=== PATIENT | female | born 1990 | race Caucasian/White ===

== ENCOUNTER 2016-06-09 15:40 | Emergency (ER) | payer BC, OTHER ==
[~2016-06-09] VITALS: Ht 165.1 cm; Wt 70.5 kg
[~2016-06-09 15:40] MED LIST: ASCO10007 PO; CRAN450C PO; HYDR-4246 PO; IBUP-1547 PO; PREN1TAB73 PO
[2016-06-09 15:43] VITALS: Ht 165.1 cm; Wt 70.5 kg
[2016-06-09] MEDS ORDERED: KETOROLAC 30mg/ml INJECTION IV ONE (16:00)
--- NOTE | 2016-06-09 16:07 | ERPDOC ---
Departure Disposition Decision Date: Jun 09, 2016 (2929) Disposition Decision Time: 17:30 Disposition: 01 DISCHARGED HOME, SELF-CARE Impression Impression Impression: Primary Impression: Hypokalemia Additional Impressions: Palpitations Dehydration Severity: Mild Condition: Stable Seen By: Mid-level only Patient Instructions: Dehydration (ED) Problems/Meds/Labs Reviewed?: Yes Medications reviewed and manag: Yes Additional Instructions: Home and rest, stay well-hydrated with water, also use electrolyte supplementation such as Gatorade. Avoid caffeine. Noted are for further episodes of palpitations. Follow-up with primary care provider in the next 2-3 days. May require further outpatient evaluation include a Holter monitor. Return to the emergency room for worsening symptoms Follow up care ordered?: Yes Mental Status: Alert, Oriented HPI - Cardiac General Chief Complaint: Chest Pain Stated Complaint: HEART RACING, CHEST FEELS HEAVY Time Seen by Provider: 15:45 Source: patient HPI - Cardiac General Initial Comments Chuyita presents today with complaint of palpitations. She recently just finished a 12 hour shift and was on her drive home. She began to feel her heart race and short of air. She also reports that she became diaphoretic. This occurred for about 20 minutes. She then drove to the ED for further evaluation and treatment. She has a 9 month old daughter and is currently breast feeding. She is a . LMP was within the past month. She denies being on control or being a smoker. She also denies any change in her medications, PMH or diet. She has not increased her caffeine intake from her average 2 cups daily. She recently traveled a 6 [address] ride to [place]. She is seen lying in bed without any indications of distress. Occurred At: home Onset/Timing: Rapid Pain/Severity Scale: Now: 5/10 Severity: mild Location: substernal Activities at Onset/Context: other (driving) Prior CP/Workup: no prior chest pain Modifying Factors: IMPROVES WITH: breathing, palpation Nitro Today/Relief: no nitro taken today Aspirin Today: unknown (none) Associated Symptoms: chest pain, diaphoresis, shortness of breath Hx of Similar Symptoms: No Allergies: Coded Allergies: Sulfa (Sulfonamide Antibiotics) (Verified Allergy, Unknown, RASH, 06/09/16) Past History Patient Medical History Problem List Updates: None Patient Surgical History None Past Medical History Pt denies signifigant PMH Metabolic: other Social History Smoking Status: Never smoker Does patient use chewing tobac: No Substance Use Type: does not use Alcohol Intake: none Marital Status: Housing: house Number of Children: 1 Current Occupational Status: employed Review of Systems Constitutional Constitutional: DENIES: chills, dizziness, fever, weakness Eyes General: DENIES: pain Lids/Accessories: DENIES: erythema, lumps/nodules ENMT Sinuses: DENIES: congestion, pain, rhinorrhea Mouth/Throat: DENIES: change in voice, sore throat Cardiovascular Cardiac: chest pain Rhythm/Rate: palpitations Pulmonary Respiratory: DENIES: cough, dyspnea, tachypnea GI Upper Abdomen: DENIES: nausea, pain, vomiting Lower Abdomen: DENIES: blood in stool, constipation, diarrhea, pain General: DENIES: burning, dysuria, frequency, pain, urgency : see HPI Musculoskeletal General: DENIES: pain, weakness Integumentary Skin: DENIES: rash Neurological General: DENIES: ataxia, change in strength, headache, numbness, seizures, syncope, weakness Psychiatric Psychiatric: DENIES: depression, emotional instability, irritability, nervousness All other Systems All Other Systems: Reviewed and Negative Physical Exam General General Nourishment: well nourished Vitals and Pain First Documented Vital Signs Date Time Temp Pulse Resp B/P Pulse Ox O2 Delivery O2 Flow Rate FiO2 06/09/16 15:43 98.7 92 20 140/93 99 Room Air Weight: Kilograms: Height (feet): 5 Height (inches): 5.00 Triage Pain Scale: Normal Exams: Head: Normocephalic w/o trauma Neck: Full range of motion, without adenopathy, JVD, bruits or thyromegaly Chest/Resp: Clear all [place] CV: Regular rate and rhythm, Pulses 2+ all extremities, no pedal edema noted Abdomen: Bowel sounds positive, soft, non-tender Musculoskeletal: No tenderness, or deformity noted, good range of motion, all extremities Integumentary: No rashes Neurologic: Patient is alert, and oriented Eyes (brief) Eyes Brief: found: EOMI Cardiovascular (brief) Cardiac: FOUND: other (pain with palpation) Pulses: equal Comments no erythema or pain to calves Integumentary (brief) Integumentary Brief: FOUND: dry, pink, warm Differential Diagnoses Considering: Acute MN, Anxiety/Panic, Atrial Fibrillation, Bradycardia, Hyperventilation, PSVT, Pulmonary Embolus, Other (costochronditis) Progress Results/Orders Orders Procedure Category Date Status Time Cbc W/Auto LAB 06/09/16 Complete Diff-Reflex Manual 16:00 Bmp - Basic Metabolic LAB 06/09/16 Complete Panel 16:00 Probnp LAB 06/09/16 Complete 16:00 Troponin I W LAB 06/09/16 Complete Hemolysis Index 16:00 LAB 06/09/16 Complete Qualitative, Serum 16:00 Ua, Dip Wreflex LAB 06/09/16 [employer] 16:00 D-Dimer LAB 06/09/16 Complete 16:00 Tsh - Thyroid Stim LAB 06/09/16 Complete Hormone 16:00 Magnesium LAB 06/09/16 Complete 16:00 EKG EKG 06/09/16 Taken 16:00 Chest 1 View RAD 06/09/16 Resulted 16:00 Iv Lock (Ed Only) EDM 06/09/16 Transmitted 16:00 Ketorolac (Toradol) PHA 06/09/16 Complete 16:00 1/2 Ns W/ Kcl 20meq PHA 06/09/16 Complete (1/2 Ns W/ Kcl 20meq 16:45 Potassium Chloride PHA 06/09/16 Complete (Kdur) 17:45 Lab Results Laboratory Tests Test 06/09/16 15:55 White Blood Count 8.5T/MM3 Red Blood Count 4.46M/MM3 Hemoglobin 14.1GM/DL Hematocrit 41.5% Mean Corpuscular Volume 93.0UM3 Mean Corpuscular Hemoglobin 31.6UUG Mean Corpuscular Hemoglobin Concent 34.0GM/DL RDW Standard Deviation 38.6FL Platelet Count 221T/MM3 Mean Platelet Volume 9.5UM3 Immature Granulocyte % (Auto) 0.1% Neutrophils (%) (Auto) 59.5% Lymphocytes (%) (Auto) 33.5% Monocytes (%) (Auto) 5.2% Eosinophils (%) (Auto) 1.3% Basophils (%) (Auto) 0.4% Absolute Immature Granulocyte (auto 0.01T/MM3 Absolute Neutrophils (auto) 5.0T/MM3 Absolute Lymphocytes (auto) 2.8T/MM3 Absolute Monocytes (auto) 0.4T/MM3 Absolute Eosinophils (auto) 0.1T/MM3 Absolute Basophils (auto) 0.0T/MM3 D-Dimer < 150NG/ML Turbidity 25 Sodium Level 146MEQ/L Potassium Level 3.5MEQ/L Chloride Level 108MEQ/L Carbon Dioxide Level 21MEQ/L Anion Gap 17MEQ/L Blood Urea Nitrogen 20.0MG/DL Creatinine 0.8MG/DL Glomerular Filtration Rate Calc 86 BUN/Creatinine Ratio 25RATIO Glucose Level 110MG/DL Calculated Osmolality 285MOSM/KG Calcium Level 9.3MG/DL Magnesium Level 1.9MG/DL Icterus Index < 2 Troponin I < 0.012ng/ml [id number]-Zit-I-Type Natriuretic Peptide 72PG/ML Thyroid Stimulating Hormone (TSH) 3.13MIU/L Human Chorionic Gonadotropin, Qual Negative Chemistry Specimen Hemolysis < 15 Medications Current ED Medications Ketorolac Tromethamine 30 mg 30 mg O ONCE IV Last administered on 06/09/16 16 :06; Start 06/09/16 at 16:00; Stop 06/09/16 at 16:05; Status DC Potassium Chloride/Sodium Chloride (1/2 NS w/ KCL 20mEq) 1,000 ml @ 500 mls/hr Q2H IV Last administered on 06/09/16 16:44; Start 06/09/16 at 16:45; Stop at 18:06; Status DC Potassium Chloride (Kdur) 20 meq O ONCE PO Last administered on 06/09/16 17: 48; Start 06/09/16 at 17:45; Stop 06/09/16 at 17:46; Status DC Progress Progress 1740- reevaluate patient. She is doing well, taking an oral fluids without difficulty. No further episodes of chest pressure or palpitations. Did review hypernatremia and hypokalemia. Patient given IV fluid replacement. Will also add oral potassium supplementation 20 milliequivalents. Discussed possible causes of palpitations including dehydration, electrolyte abnormalities, stress , caffeine, etc. Encourage patient to decrease amount of caffeine. Patient does currently. Breast pump and is at high risk for dehydration. Encouraged her to increase her oral intake and also utilize electrolyte supplementation such as Gatorade. Instructed patient to monitor for further episodes of palpitations. She may require further outpatient evaluation including Holter monitor with her primary care provider. Xray Xray : Xray: CXR PA/Lat Interpretation: CHINO Blanca APRN Jun 09, 2016 16:07
[2016-06-09 16:13] LABS: BASOPHILS % (AUTO) 0.4 % (0-2); EOSINOPHILS # (AUTO) 0.1 T/MM3 (0-0.5); EOSINOPHILS % (AUTO) 1.3 % (0-4); HCT - HEMATOCRIT 41.5 % (36-46); HGB - HEMOGLOBIN 14.1 GM/DL (12-16); IMMATURE GRANULOCYTE # (AUTO) 0.01 T/MM3 (0.00-0.03); IMMATURE GRANULOCYTE % (AUTO) 0.1 % (0.0-0.5); LYMPHOCYTES # (AUTO) 2.8 T/MM3 (1-4.8); LYMPHOCYTES % (AUTO) 33.5 % (23-45); MEAN CORPUSCULAR HGB 31.6 UUG (26-34); MEAN PLATELET VOLUME 9.5 UM3 (9.4-12.4); MONOCYTES # (AUTO) 0.4 T/MM3 (0-0.8); MONOCYTES % (AUTO) 5.2 % (0-9.0); NEUTROPHILS % (AUTO) 59.5 % (33-66); RED BLOOD COUNT 4.46 M/MM3 (4.00-5.20); WBC - WHITE BLOOD COUNT 8.5 T/MM3 (4.5-11.0)
[2016-06-09 16:18] LABS: ANION GAP 17 MEQ/L (5-15); BUN/CREATININE RATIO 25 RATIO (6-26); CALCIUM 9.3 MG/DL (8.4-10.2); CHLORIDE 108 MEQ/L (98-107); CO2 - CARBON DIOXIDE 21 MEQ/L (22-30); CREATININE 0.8 MG/DL (0.7-1.2); GLOMERULAR FILTRATION RATE 86; GLUCOSE 110 MG/DL (65-110); MAGNESIUM 1.9 MG/DL (1.6-2.3); POTASSIUM 3.5 MEQ/L (3.6-5); SODIUM 146 MEQ/L (134-144)
--- NOTE | 2016-06-09 16:25 | NUR ---
UPDATE PATIENT REPORTS SLIGHT IMPROVEMENT IN CHEST TIGHTNESS AFTER TORADOL ADMIN.
[2016-06-09 16:29] LABS: PROBNP 72 PG/ML (0-175)
--- NOTE | 2016-06-09 16:30 | NUR ---
ACTIVITY PATIENT AMBULATORY TO RESTROOM, TOLERATES ACTIVITY WELL.
[2016-06-09] MEDS ORDERED: 1/2 NS w/ KCL 20mEq 1,000 ML IV SCH (16:45)
[2016-06-09 16:47] LABS: THYROID STIM HORMONE-TSH 3.13 MIU/L (0.47-4.68)
--- NOTE | 2016-06-09 17:03 | NUR ---
UPDATE PATIENT SITTING IN CHAIR PUMPING. PATIENT REPORTS NO SIGNIFICANT CHANGE IN CHEST TIGHTNESS AT THIS TIME. PATIENT DENIES NEEDS.
[2016-06-09] MEDS ORDERED: POTASSIUM CHLORIDE 20 MEQ TABLET PO ONE (17:45)
[2016-06-09 18:03] VITALS: BP 127/87; PULSE 75; RESP 29; TEMP 98.7; O2SAT 99
--- NOTE | 2016-06-09 20:18 | DI ---
Indication: ITS.REASON: CHEST TIGHTNESS PROCEDURE: CHEST 1 VIEW: Encounter: Initial Comparison: None FINDINGS: The lungs are clear. There is no abnormal airspace opacity, pleural effusion or pneumothorax identified. The heart size, pulmonary vasculature and mediastinum are within normal limits. No significant skeletal abnormality is seen. IMPRESSION: No acute cardiopulmonary abnormality. .
== END 2016-06-09 18:03 | disposition home or self-care (01) ==
LOC: ED 15:40
DX: R00.2 Palpitations (principal); E87.6 Hypokalemia; E86.0 Dehydration
CPT/HCPCS: 80048; 83735; 83880; 84443; 84484; 84703; 85025; 85379; 93005